=== PATIENT | male | born 1980 | race Caucasian/White ===

== ENCOUNTER 2021-02-07 16:32 | Inpatient (IN) | payer OTHER ==
[2021-02-07 18:05] VITALS: BMI 28.5
[2021-02-07] MEDS ORDERED: ONDANSETRON 4 MG/2 ML VIAL IVPUSH ONE (18:51)
[2021-02-07] MEDS ORDERED: ACETAMINOPHEN 325 MG TABLET (FP) PO PRN ×3 (18:51→21:13)
[2021-02-07] MEDS ORDERED: MAGNESIUM HYDROX 2400MG/30ML ORAL SUSPENSION 30 ML CUP PO PRN (21:13)
[2021-02-07] MEDS ORDERED: guaiFENesin 200 MG/10 ML 10 ML UNIT-DOSE CUPS PO PRN (21:13)
[2021-02-07] MEDS ORDERED: BISMUTH SUBSALICYLATE 524 MG/30 ML PO PRN (21:13)
[2021-02-07] MEDS ORDERED: methaDONE HCL 10 MG TABLET (FOR DETOX USE ONLY) PO ONE (21:13)
[2021-02-07] MEDS ORDERED: IBUPROFEN 400 MG TABLET (FP) PO PRN (21:13)
[2021-02-07] MEDS ORDERED: MENTHOL/PHENOL 1 EACH UD MM PRN (21:13)
[2021-02-07] MEDS ORDERED: NALOXONE HCL 0.4 MG/ML VIAL IM PRN (21:13)
[2021-02-07] MEDS ORDERED: cloNIDine HCL 0.1 MG TABLET PO PRN (21:13)
[2021-02-07] MEDS ORDERED: MAGNESIUM CITRATE 300 ML BOTTLE PO PRN (21:13)
[2021-02-07] MEDS ORDERED: P-EPHED 60MG/TRIPROLIDI 2.5MG TABLET PO PRN (21:13)
[2021-02-07] MEDS ORDERED: DICYCLOMINE HCL 10 MG CAPSULE PO PRN (21:13)
[2021-02-07] MEDS ORDERED: NALOXONE (NARCAN) HCL 4 MG/0.1 ML SPRAY NS PRN (21:13)
[2021-02-07] MEDS ORDERED: ONDANSETRON *ODT* 4 MG TABLET SL PRN (21:13)
[2021-02-07] MEDS ORDERED: MAG HYDROX/AL HYDROX/SIMETH 30 ML UNIT-DOSE CUP PO PRN (21:13)
[2021-02-07] MEDS ORDERED: NICOTINE 10 MG CARTRIDGE (INHALER) IH PRN (21:13)
[2021-02-08] MEDS: THIAMINE HCL 100 MG TABLET (FP) PO SCH ×2 (01:06→22:23)
[2021-02-08] MEDS: MELATONIN 5 MG TABLETS PO SCH ×2 (01:06→22:23)
[2021-02-08] MEDS ORDERED: methaDONE HCL 10 MG TABLET (FOR DETOX USE ONLY) PO ONE (10:00)
[2021-02-08] MEDS ORDERED: hydrOXYzine PAMOATE 50 MG CAPSULE (FP) PO ONE (10:00)
[2021-02-08] MEDS: PRENATAL VITAMINS W/ FOLIC ACID TABLET (FP) PO SCH (10:30)
[2021-02-08] MEDS: NICOTINE 21 MG/24 HOURS TOPICAL PATCH TD SCH (10:30)
[2021-02-08 11:55] LABS: HEMATOCRIT 41.3 % (35.4-49); MCH 29.4 pg (25.7-33.7); MEAN CELL VOLUME 86.6 fl (80-96); MEAN PLT VOLUME 7.9 fl (7.5-11.1); PLATELET COUNT 206 10^3/uL (134-434); RBC 4.77 M/mm3 (4.00-5.60); RDW 14.5 % (11.9-15.9); WHITE BLOOD COUNT 6.5 K/mm3 (4.0-10.0)
[2021-02-08 12:23] LABS: CALCIUM 8.5 mg/dL (8.5-10.1)
[2021-02-08 12:24] LABS: ALBUMIN 3.3 g/dl (3.4-5.0); BLOOD UREA NITROGEN 10.4 mg/dL (7-18)
[2021-02-08 12:27] LABS: CREATININE 0.9 mg/dL (0.55-1.3)
[2021-02-08 12:28] LABS: BILIRUBIN,TOTAL 1.1 mg/dL (0.2-1)
[2021-02-08 12:29] LABS: TOT PROT 7.4 g/dl (6.4-8.2)
[2021-02-08] MEDS: traZODone HCL 50 MG TABLET (FP) PO SCH (22:23)
[2021-02-09] MEDS ORDERED: methaDONE HCL 10 MG TABLET (FOR DETOX USE ONLY) ONE (09:08)
[2021-02-09] MEDS ORDERED: methaDONE HCL 10 MG TABLET (FOR DETOX USE ONLY) PO ONE (10:00)
[2021-02-09] MEDS: NICOTINE 21 MG/24 HOURS TOPICAL PATCH TD SCH (10:21)
[2021-02-09] MEDS: PRENATAL VITAMINS W/ FOLIC ACID TABLET (FP) PO SCH (10:21)
[2021-02-09] MEDS: SERTRALINE HCL 50 MG TABLET (FP) PO SCH (10:22)
[2021-02-09] MEDS: THIAMINE HCL 100 MG TABLET (FP) PO SCH (22:15)
[2021-02-09] MEDS: MELATONIN 5 MG TABLETS PO SCH (22:15)
[2021-02-09] MEDS: traZODone HCL 50 MG TABLET (FP) PO SCH (22:15)
[2021-02-10] MEDS ORDERED: methaDONE HCL 10 MG TABLET (FOR DETOX USE ONLY) PO ONE (10:00)
[2021-02-10] MEDS: SERTRALINE HCL 50 MG TABLET (FP) PO SCH (10:03)
[2021-02-10] MEDS: PRENATAL VITAMINS W/ FOLIC ACID TABLET (FP) PO SCH (10:03)
[2021-02-10] MEDS: NICOTINE 21 MG/24 HOURS TOPICAL PATCH TD SCH (10:05)
[2021-02-10] MEDS: traZODone HCL 50 MG TABLET (FP) PO SCH (22:14)
[2021-02-10] MEDS: THIAMINE HCL 100 MG TABLET (FP) PO SCH (22:14)
[2021-02-10] MEDS: MELATONIN 5 MG TABLETS PO SCH (22:14)
[2021-02-11] MEDS ORDERED: methaDONE HCL 10 MG TABLET (FOR DETOX USE ONLY) PO ONE (10:00)
[2021-02-11] MEDS: SERTRALINE HCL 50 MG TABLET (FP) PO SCH (10:05)
[2021-02-11] MEDS: NICOTINE 21 MG/24 HOURS TOPICAL PATCH TD SCH (10:05)
[2021-02-11] MEDS: PRENATAL VITAMINS W/ FOLIC ACID TABLET (FP) PO SCH (10:05)
[2021-02-11] MEDS: METHOCARBAMOL 500 MG TABLET PO PRN (10:06)
[2021-02-11] MEDS: traZODone HCL 50 MG TABLET (FP) PO SCH (22:04)
[2021-02-11] MEDS: THIAMINE HCL 100 MG TABLET (FP) PO SCH (22:04)
[2021-02-11] MEDS: MELATONIN 5 MG TABLETS PO SCH (22:05)
[2021-02-12 06:24] VITALS: BP 115/59; PULSE 72; TEMP 97.8
[2021-02-12] MEDS ORDERED: methaDONE HCL 10 MG TABLET (FOR DETOX USE ONLY) PO ONE (10:00)
[2021-02-12] MEDS: PRENATAL VITAMINS W/ FOLIC ACID TABLET (FP) PO SCH (10:24)
[2021-02-12] MEDS: NICOTINE 21 MG/24 HOURS TOPICAL PATCH TD SCH (10:24)
[2021-02-12] MEDS: SERTRALINE HCL 50 MG TABLET (FP) PO SCH (10:24)
[2021-02-12] MEDS: METHOCARBAMOL 500 MG TABLET PO PRN (10:25)
== END 2021-02-12 11:24 | disposition home or self-care (01) | DRG 773 ==
LOC: YASAS 16:32 → Y6N 22:40
PROVIDERS: ADMIT Allergy & Immunology; ATTEND Allergy & Immunology
PROC: HZ2ZZZZ Detoxification Services for Substance Abuse Treatment (ICD-10-PCS; principal; 2021-02-07)
DX: F11.23 Opioid dependence with withdrawal (principal); F14.20 Cocaine dependence, uncomplicated; F17.210 Nicotine dependence, cigarettes, uncomplicated; F19.24 Other psychoactive substance dependence with psychoactive substance-induced mood disorder; F19.282 Other psychoactive substance dependence with psychoactive substance-induced sleep disorder; Z56.0 Unemployment, unspecified; Z59.00 Homelessness unspecified
CPT/HCPCS: 36415; 80053; 82962; 85027; 86780; C9803; U0003; U0005

== ENCOUNTER 2021-04-13 16:37 | Observation (INO) | payer OTHER ==
[2021-04-13] MEDS ORDERED: LORazepam 2 MG/ML SDV VIAL IM ONE ×3 (17:01→22:57)
[2021-04-13] MEDS ORDERED: LORazepam 2 MG/ML SDV VIAL ONE ×3 (17:12→22:57)
[2021-04-13] MEDS ORDERED: ACETAMINOPHEN 325 MG TABLET (FP) PO ONE (17:22)
[2021-04-13] MEDS ORDERED: DALBAVANCIN HCL 1,500 MG in DEXTROSE 5%-WATER - 500 ML IVPB ONE (17:30)
[2021-04-13] MEDS ORDERED: SODIUM CHLORIDE 0.9% 500 ML INFUS.BAG IV ONE ×2 (17:38→20:42)
[2021-04-13] MEDS ORDERED: ACETAMINOPHEN 325 MG TABLET (FP) ONE (17:41)
[2021-04-13] MEDS ORDERED: HALOPERIDOL LACTATE 5 MG/ML IM ONE (17:46)
[2021-04-13] MEDS ORDERED: HALOPERIDOL LACTATE 5 MG/ML ONE (17:46)
[2021-04-13] MEDS ORDERED: MIDAZOLAM HCL 2 MG/2 ML SINGLE DOSE VIAL IM ONE ×2 (17:52→18:01)
[2021-04-13] MEDS ORDERED: MIDAZOLAM HCL 2 MG/2 ML SINGLE DOSE VIAL ONE ×4 (17:53→21:18)
[2021-04-13] MEDS ORDERED: MIDAZOLAM HCL 5 MG/1 ML Single Dose Vial IM ONE (18:01)
[2021-04-13] MEDS ORDERED: DALBAVANCIN HCL 500 MG VIAL (RESTRICTED TO ID ONLY) IVPB ONE (18:57)
[2021-04-13 19:06] LABS: BASO % 0.6 % (0-2.0); EOS % 3.1 % (0-4.5); HEMATOCRIT 37.2 % (35.4-49); HEMOGLOBIN 12.6 GM/dL (11.7-16.9); LYMPH % 23.7 % (8-40); MCH 29.8 pg (25.7-33.7); MCHC 33.9 g/dl (32.0-35.9); MEAN CELL VOLUME 88.1 fl (80-96); MEAN PLT VOLUME 7.5 fl (7.5-11.1); MONO % 10.6 % (3.8-10.2); PLATELET COUNT 215 10^3/uL (134-434); RBC 4.23 M/mm3 (4.00-5.60); RDW 14.4 % (11.9-15.9); WHITE BLOOD COUNT 9.1 K/mm3 (4.0-10.0)
[2021-04-13] MEDS ORDERED: MIDAZOLAM HCL 2 MG/2 ML SINGLE DOSE VIAL IVPUSH ONE (19:15)
[2021-04-13 19:24] LABS: CHLORIDE 101 mmol/L (98-107); SODIUM 139 mmol/L (136-145)
[2021-04-13 19:27] LABS: CALCIUM 8.6 mg/dL (8.5-10.1)
[2021-04-13 19:28] LABS: ALBUMIN 3.3 g/dl (3.4-5.0); ANION GAP 10 MMOL/L (8-16); BLOOD UREA NITROGEN 13.2 mg/dL (7-18); CO2 28 mmol/L (21-32); GLUCOSE,RANDOM 107 mg/dL (74-106)
[2021-04-13 19:31] LABS: CREATININE 1.2 mg/dL (0.55-1.3); SGOT/AST 65 U/L (15-37); SGPT/ALT 78 U/L (13-61)
[2021-04-13 19:32] LABS: BILIRUBIN,TOTAL 0.7 mg/dL (0.2-1); TOT PROT 7.2 g/dl (6.4-8.2)
[2021-04-13 19:34] LABS: ALK PHOS 81 U/L (45-117)
[2021-04-14 08:11] LABS: PHENCYCLIDINE,URINE NEGATIVE (NEGATIVE); URINE AMPHETAMINES NEGATIVE (NEGATIVE)
[2021-04-14 08:14] LABS: COCAINE, UR POSITIVE (NEGATIVE); METHADONE, UR POSITIVE (NEGATIVE); OPIATES, URI POSITIVE (NEGATIVE); URINE BARBITURATES NEGATIVE (NEGATIVE); URINE BENZODIAZEPINES POSITIVE (NEGATIVE)
[2021-04-14] MEDS ORDERED: LORazepam 2 MG TABLET PO PRN (18:05)
[2021-04-15] MEDS ORDERED: ENOXAPARIN NA (PORCINE) 40 MG/0.4 ML DISP.SYRIN SQ ONE (08:58)
[2021-04-15] MEDS: ENOXAPARIN NA (PORCINE) 40 MG/0.4 ML DISP.SYRIN SQ SCH (10:07)
[2021-04-15 15:10] VITALS: BMI 27.9
[2021-04-15] MEDS ORDERED: VANCOMYCIN 1 GM in D5W (PRE-DOCKED) 1,000 MG/250 ML IVPB ONE (17:18)
[2021-04-15] MEDS: SODIUM CHLORIDE 1,000 ML IV SCH (18:28)
[2021-04-15] MEDS: CEFAZOLIN 2 GM in DEXTROSE 5%-WATER - 100 ML IVPB SCH (20:35)
[2021-04-15] MEDS: LORazepam 1 MG TABLET PO PRN (21:05)
[2021-04-16] MEDS: CEFAZOLIN 2 GM in DEXTROSE 5%-WATER - 100 ML IVPB SCH ×2 (01:39→09:04)
[2021-04-16] MEDS: SODIUM CHLORIDE 1,000 ML IV SCH (04:42)
[2021-04-16 06:12] VITALS: BP 137/70; PULSE 85; TEMP 98.1
[2021-04-16] MEDS: LORazepam 1 MG TABLET PO PRN (09:04)
[2021-04-16] MEDS: ENOXAPARIN NA (PORCINE) 40 MG/0.4 ML DISP.SYRIN SQ SCH (09:06)
[2021-04-16 10:23] LABS: BASO % 0.5 % (0-2.0); EOS % 1.2 % (0-4.5); HEMATOCRIT 37.9 % (35.4-49); HEMOGLOBIN 13.3 GM/dL (11.7-16.9); LYMPH % 18.6 % (8-40); MCH 30.6 pg (25.7-33.7); MCHC 35.3 g/dl (32.0-35.9); MEAN CELL VOLUME 86.8 fl (80-96); MEAN PLT VOLUME 7.5 fl (7.5-11.1); MONO % 4.1 % (3.8-10.2); NEUT % 75.6 % (42.8-82.8); PLATELET COUNT 216 10^3/uL (134-434); RBC 4.36 M/mm3 (4.00-5.60); RDW 14.6 % (11.9-15.9); WHITE BLOOD COUNT 6.1 K/mm3 (4.0-10.0)
[2021-04-16 10:47] LABS: ALBUMIN 3.3 g/dl (3.4-5.0); BLOOD UREA NITROGEN 6.6 mg/dL (7-18)
[2021-04-16 10:48] LABS: CALCIUM 8.6 mg/dL (8.5-10.1); MAGNESIUM 2.1 mg/dL (1.8-2.4)
[2021-04-16 10:50] LABS: CREATININE 0.8 mg/dL (0.55-1.3); PHOSPHOROUS 1.9 mg/dL (2.5-4.9)
[2021-04-16 10:52] LABS: BILIRUBIN,TOTAL 0.7 mg/dL (0.2-1); TOT PROT 7.3 g/dl (6.4-8.2)
== END 2021-04-16 10:47 | disposition left against medical advice (07) ==
LOC: JER 16:37 → JERBED 04-14 09:14 → J8W 04-15 14:51
PROVIDERS: ADMIT Internal Medicine; ATTEND Internal Medicine
PROC: 3E033NZ Introduction of Analgesics, Hypnotics, Sedatives into Peripheral Vein, Percutaneous Approach (ICD-10-PCS; principal; 2021-04-14)
PROC: 3E03329 Introduction of Other Anti-infective into Peripheral Vein, Percutaneous Approach (ICD-10-PCS; 2021-04-14)
PROC: 3E023NZ Introduction of Analgesics, Hypnotics, Sedatives into Muscle, Percutaneous Approach (ICD-10-PCS; 2021-04-14)
DX: F19.929 Other psychoactive substance use, unspecified with intoxication, unspecified (principal); F17.210 Nicotine dependence, cigarettes, uncomplicated; R41.81 Age-related cognitive decline; R25.9 Unspecified abnormal involuntary movements; R74.01 Elevation of levels of liver transaminase levels; H55.09 Other forms of nystagmus; L03.115 Cellulitis of right lower limb
CPT/HCPCS: 36415; 70450-TC; 73590-TC-RT-FY; 80053; 80307; 82550; 82553; 82962; 83735; 84100; 85025; 87040; 93005; 93010; 93970-TC; 96372; 96374; 96375; 99285-25; C9803; G0378; J0875; U0003; U0005

== ENCOUNTER 2021-04-21 17:13 | Inpatient (IN) | payer OTHER ==
[2021-04-21 17:48] VITALS: BMI 27.3
[2021-04-21] MEDS ORDERED: NICOTINE POLACRILEX 2 MG GUM BUC PRN (18:29)
[2021-04-21] MEDS ORDERED: BISMUTH SUBSALICYLATE 524 MG/30 ML PO PRN (18:29)
[2021-04-21] MEDS ORDERED: METHOCARBAMOL 500 MG TABLET PO PRN (18:29)
[2021-04-21] MEDS ORDERED: MENTHOL/PHENOL 1 EACH UD MM PRN (18:29)
[2021-04-21] MEDS ORDERED: ACETAMINOPHEN 325 MG TABLET (FP) PO PRN ×2 (18:29)
[2021-04-21] MEDS ORDERED: IBUPROFEN 400 MG TABLET (FP) PO PRN (18:29)
[2021-04-21] MEDS ORDERED: ONDANSETRON *ODT* 4 MG TABLET SL PRN (18:29)
[2021-04-21] MEDS ORDERED: MAGNESIUM HYDROX 2400MG/30ML ORAL SUSPENSION 30 ML CUP PO PRN (18:29)
[2021-04-21] MEDS ORDERED: DICYCLOMINE HCL 10 MG CAPSULE PO PRN (18:29)
[2021-04-21] MEDS ORDERED: MAG HYDROX/AL HYDROX/SIMETH 30 ML UNIT-DOSE CUP PO PRN (18:29)
[2021-04-21] MEDS ORDERED: MAGNESIUM CITRATE 300 ML BOTTLE PO PRN (18:29)
[2021-04-21] MEDS ORDERED: CALAMINE 8% TOPICAL LOTION 177 ML BOTTLE TP PRN (20:39)
[2021-04-21] MEDS: THIAMINE HCL 100 MG TABLET (FP) PO SCH (22:25)
[2021-04-21] MEDS: CLINDAMYCIN HCL 150 MG CAPSULE (FP) PO SCH (22:25)
[2021-04-21] MEDS: MELATONIN 5 MG TABLETS PO SCH (22:26)
[2021-04-21] MEDS: hydrOXYzine PAMOATE 25 MG CAPSULE (FP) PO PRN (22:26)
[2021-04-22] MEDS: CLINDAMYCIN HCL 150 MG CAPSULE (FP) PO SCH ×5 (01:25→23:04)
[2021-04-22] MEDS: PRENATAL VITAMINS W/ FOLIC ACID TABLET (FP) PO SCH (11:16)
[2021-04-22] MEDS ORDERED: cloNIDine HCL 0.1 MG TABLET PO PRN (15:22)
[2021-04-22] MEDS ORDERED: methaDONE HCL 10 MG TABLET (FOR DETOX USE ONLY) ONE (17:26)
[2021-04-22] MEDS: THIAMINE HCL 100 MG TABLET (FP) PO SCH (23:04)
[2021-04-22] MEDS: MELATONIN 5 MG TABLETS PO SCH (23:04)
[2021-04-22] MEDS: hydrOXYzine PAMOATE 25 MG CAPSULE (FP) PO PRN (23:05)
[2021-04-23] MEDS: CLINDAMYCIN HCL 150 MG CAPSULE (FP) PO SCH ×4 (06:12→23:18)
[2021-04-23] MEDS ORDERED: methaDONE HCL 10 MG TABLET (FOR DETOX USE ONLY) PO ONE (10:00)
[2021-04-23] MEDS: PRENATAL VITAMINS W/ FOLIC ACID TABLET (FP) PO SCH (10:08)
[2021-04-23] MEDS: hydrOXYzine PAMOATE 25 MG CAPSULE (FP) PO PRN ×2 (18:46→23:18)
[2021-04-23] MEDS: THIAMINE HCL 100 MG TABLET (FP) PO SCH (23:18)
[2021-04-23] MEDS: MELATONIN 5 MG TABLETS PO SCH (23:18)
[2021-04-24] MEDS: CLINDAMYCIN HCL 150 MG CAPSULE (FP) PO SCH ×4 (06:46→23:05)
[2021-04-24] MEDS ORDERED: methaDONE HCL 10 MG TABLET (FOR DETOX USE ONLY) ONE (08:34)
[2021-04-24] MEDS: PRENATAL VITAMINS W/ FOLIC ACID TABLET (FP) PO SCH (11:29)
[2021-04-24] MEDS: hydrOXYzine PAMOATE 25 MG CAPSULE (FP) PO PRN (17:49)
[2021-04-24] MEDS: MELATONIN 5 MG TABLETS PO SCH (22:47)
[2021-04-24] MEDS: THIAMINE HCL 100 MG TABLET (FP) PO SCH (22:47)
[2021-04-25] MEDS: CLINDAMYCIN HCL 150 MG CAPSULE (FP) PO SCH ×4 (06:21→23:13)
[2021-04-25] MEDS ORDERED: methaDONE HCL 10 MG TABLET (FOR DETOX USE ONLY) PO ONE (10:00)
[2021-04-25] MEDS: PRENATAL VITAMINS W/ FOLIC ACID TABLET (FP) PO SCH (10:50)
[2021-04-25] MEDS: MELATONIN 5 MG TABLETS PO SCH (21:32)
[2021-04-25] MEDS: THIAMINE HCL 100 MG TABLET (FP) PO SCH (21:32)
[2021-04-26] MEDS: CLINDAMYCIN HCL 150 MG CAPSULE (FP) PO SCH (05:25)
[2021-04-26 08:59] VITALS: BP 126/76; PULSE 88; TEMP 98.1
[2021-04-26] MEDS: PRENATAL VITAMINS W/ FOLIC ACID TABLET (FP) PO SCH (10:23)
== END 2021-04-26 10:28 | disposition home or self-care (01) | DRG 773 ==
LOC: YASAS 17:13 → Y6N 20:01 → Y3N 23:58
PROVIDERS: ADMIT Allergy & Immunology; ATTEND Allergy & Immunology
PROC: HZ2ZZZZ Detoxification Services for Substance Abuse Treatment (ICD-10-PCS; principal; 2021-04-21)
DX: F11.23 Opioid dependence with withdrawal (principal); F11.220 Opioid dependence with intoxication, uncomplicated; F14.20 Cocaine dependence, uncomplicated; F17.210 Nicotine dependence, cigarettes, uncomplicated; U07.1 COVID-19; Z86.19 Personal history of other infectious and parasitic diseases
CPT/HCPCS: C9803; U0003; U0005

== ENCOUNTER 2023-08-30 17:55 | Inpatient (IN) | payer OTHER ==
[2023-08-30 19:30] VITALS: BMI 24.7
[2023-08-30] MEDS ORDERED: cloNIDine HCL 0.1 MG TABLET PO PRN (20:53)
[2023-08-30] MEDS ORDERED: NICOTINE POLACRILEX 2 MG GUM BUC PRN (21:00)
[2023-08-30] MEDS ORDERED: BENZOCAINE/MENTHOL (CHLORASEPTIC ) LOZENGE MM PRN (21:00)
[2023-08-30] MEDS ORDERED: NALOXONE HCL 0.4 MG/ML VIAL IM PRN (21:00)
[2023-08-30] MEDS ORDERED: BENZONATATE 200 MG CAPSULE PO PRN (21:00)
[2023-08-30] MEDS ORDERED: ONDANSETRON *ODT* 4 MG TABLET SL PRN (21:00)
[2023-08-30] MEDS ORDERED: IBUPROFEN 400 MG TABLET (FP) PO PRN (21:00)
[2023-08-30] MEDS ORDERED: POLYETHYLENE GLYCOL (HEALTHYLAX) 3350 17 GM PACKET PO PRN (21:00)
[2023-08-30] MEDS ORDERED: BISMUTH SUBSALICYLATE 524 MG/30 ML PO PRN (21:00)
[2023-08-30] MEDS ORDERED: DICYCLOMINE HCL 10 MG CAPSULE PO PRN (21:00)
[2023-08-30] MEDS ORDERED: NALOXONE HCL (KLOXXADO) 8 MG SPRAY NS PRN (21:00)
[2023-08-30] MEDS ORDERED: P-EPHED 60MG/TRIPROLIDI 2.5MG TABLET PO PRN (21:00)
[2023-08-30] MEDS ORDERED: guaiFENesin 600 MG TABLET.ER (FP) PO PRN (21:00)
[2023-08-30] MEDS ORDERED: MAG HYDROX/AL HYDROX/SIMETH 30 ML UNIT-DOSE CUP PO PRN (21:00)
[2023-08-30] MEDS ORDERED: ACETAMINOPHEN 325 MG TABLET (FP) PO PRN (21:00)
[2023-08-30] MEDS ORDERED: IBUPROFEN 600 MG TABLET (FP) PO PRN (21:00)
[2023-08-30] MEDS ORDERED: LOPERAMIDE HCL 2 MG CAPSULE PO PRN (21:00)
[2023-08-30] MEDS ORDERED: MAGNESIUM HYDROX 2400MG/30ML ORAL SUSPENSION 30 ML CUP PO PRN (21:00)
[2023-08-30] MEDS ORDERED: methaDONE HCL 10 MG TABLET (FOR DETOX USE ONLY) ONE (21:13)
[2023-08-30] MEDS: methaDONE HCL 10 MG TABLET (FOR DETOX USE ONLY) PO ONE (21:17)
[2023-08-30] MEDS: THIAMINE 100 MG TABLET PO SCH (22:40)
[2023-08-30] MEDS: MELATONIN 5 MG TABLETS PO SCH (22:40)
[2023-08-31] MEDS: PRENATAL VITAMINS W/ FOLIC ACID TABLET (FP) PO SCH (09:59)
[2023-08-31 12:39] LABS: CALCIUM 9.1 mg/dL (8.5-10.1); HEMOGLOBIN 14.2 GM/dL (11.7-16.9); MCH 30.2 pg (25.7-33.7); MCHC 34.6 g/dl (32.0-35.9); MEAN CELL VOLUME 87.4 fl (80-96); MEAN PLT VOLUME 7.6 fl (7.5-11.1); PLATELET COUNT 242 10^3/uL (134-434); RBC 4.69 M/mm3 (4.00-5.60); RDW 13.9 % (11.9-15.9); WHITE BLOOD COUNT 8.1 K/mm3 (4.0-10.0)
[2023-08-31 12:40] LABS: ALBUMIN 3.5 g/dl (3.4-5.0); BLOOD UREA NITROGEN 11.6 mg/dL (7-18)
[2023-08-31 12:43] LABS: CREATININE 0.8 mg/dL (0.55-1.3)
[2023-08-31 12:44] LABS: BILIRUBIN,TOTAL 0.6 mg/dL (0.2-1)
[2023-08-31 12:45] LABS: TOT PROT 7.3 g/dl (6.4-8.2)
[2023-08-31] MEDS: METHOCARBAMOL 500 MG TABLET PO PRN (22:18)
[2023-09-01] MEDS: methaDONE HCL 10 MG TABLET (FOR DETOX USE ONLY) PO ONE (10:17)
[2023-09-03] MEDS: methaDONE HCL 10 MG TABLET (FOR DETOX USE ONLY) PO ONE (09:27)
[2023-09-03 17:13] VITALS: BP 102/62; PULSE 78; RESP 17; TEMP 98
== END 2023-09-03 18:35 | disposition home or self-care (01) | DRG 773 ==
LOC: YASAS 17:55 → Y6N 21:25
PROVIDERS: ADMIT Allergy & Immunology; ATTEND Surgery
PROC: HZ2ZZZZ Detoxification Services for Substance Abuse Treatment (ICD-10-PCS; principal; 2023-08-30)
DX: F11.23 Opioid dependence with withdrawal (principal); F14.20 Cocaine dependence, uncomplicated; F17.210 Nicotine dependence, cigarettes, uncomplicated; Z86.19 Personal history of other infectious and parasitic diseases; Z59.00 Homelessness unspecified
CPT/HCPCS: 36415; 80053; 80305; 85027; 86780; 93005; 93010